=== PATIENT | male | born 1980 | race African-American/Black ===

== ENCOUNTER 2017-09-27 04:51 | Emergency (ER) | payer OTHER ==
[~2017-09-27] VITALS: Ht 167.6 cm; Wt 75.7 kg
[2017-09-27] MEDS ORDERED: LIDOCAINE WITH 8.4% SOD BICARB 3 ML DISP.SYRIN. INJ ONE (05:15)
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
[2017-09-27] MEDS ORDERED: NEOMY/BACITR/POLYMYXIN OINT PACKET. TP ONE (06:30)
[2017-09-27 07:00] VITALS: BP 118/72
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
[2017-09-27] MEDS ORDERED: CEPH-264 PO (07:17)
[2017-09-27] MEDS ORDERED: DIPHTH,PERTUSS(ACELL),TET TOX 0.5 ML DISP.SYRIN. VAX IM ONE (07:30)
== END 2017-09-27 07:46 | disposition home or self-care (01) ==
LOC: ER 04:51
DX: S02.2XXA Fracture of nasal bones, initial encounter for closed fracture (principal); S01.81XA Laceration without foreign body of other part of head, initial encounter; Y04.2XXA Assault by strike against or bumped into by another person, initial encounter; Y93.89 Activity, other specified; Y92.89 Other specified places as the place of occurrence of the external cause; Y99.8 Other external cause status
CPT/HCPCS: 12013; 70450; 70486; 90471; 90715; 99284-25

== ENCOUNTER 2017-10-02 22:41 | Emergency (ER) | payer OTHER ==
[~2017-10-02] VITALS: Ht 167.6 cm; Wt 75.7 kg
[~2017-10-02 22:41] MED LIST: CEPH-264 PO
[2017-10-02 22:45] VITALS: BP 149/72
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
== END 2017-10-02 23:13 | disposition home or self-care (01) ==
LOC: ER 22:41
DX: S01.21XD Laceration without foreign body of nose, subsequent encounter (principal); S01.511D Laceration without foreign body of lip, subsequent encounter; S01.412D Laceration without foreign body of left cheek and temporomandibular area, subsequent encounter; X58.XXXD Exposure to other specified factors, subsequent encounter
CPT/HCPCS: 99281